=== PATIENT | female | born 1955 | race Caucasian/White ===

== ENCOUNTER 2018-11-18 09:59 | Emergency (ER) | payer BC, OTHER ==
[2018-11-18] MEDS ORDERED: Glucagon* 1 MG VIAL IV ONE (10:16)
[2018-11-18] MEDS ORDERED: NS 0.9% 1000 ML** 1,000 ML IV ONE (10:19)
--- NOTE | 2018-11-18 11:32 | ED ---
GI/ HPI - HPI Summary HPI Summary: Pt. is a 62 y.o female who presents to the ER for possible esophageal foreign body. Pt. states she was eating a hotdog yesterday and believes it is stuck in her throat. Pt. states she has not ate anything since. Pt. states she has been spitting up liquids and saliva. Pt. states she has had food stuck in her throat in the past but usually is able to get it to pass. Otherwise no past medical hx. Sxs are moderate in severity. No current modifying factors. - History of Current Complaint Chief Complaint: EDForeignBodyEsophag Time Seen by Provider: 11/18/18 10:11 Stated Complaint: PT STATES THROAT BLOCKAGE Hx Obtained From: Patient Pain Intensity: 0 - Allergy/Home Medications Allergies/Adverse Reactions: Allergies Allergy/AdvReac Type Severity Reaction Status Date / Time No Known Allergies Allergy Verified 11/08/13 12:38 PMH/Surg Hx/FS Hx/Imm Hx Previously Healthy: Yes Endocrine/Hematology History: Denies: Hx Diabetes, Hx Thyroid Disease Cardiovascular History: Denies: Hx Hypertension Respiratory History: Denies: Hx Asthma, Hx Chronic Obstructive Pulmonary Disease (COPD) GI History: Denies: Hx Ulcer Infectious Disease History: No Infectious Disease History: Denies: Hx Hepatitis, Hx Human Immunodeficiency Virus (HIV), History Other Infectious Disease, Traveled Outside the [place] in Last 30 Days - Family History Known Family History: Positive: Non-Contributory - Social History Occupation: Retired Lives: With Family Alcohol Use: None Substance Use Type: Reports: None Smoking Status (MU): Never Smoked Tobacco Review of Systems Cardiovascular: Negative Respiratory: Negative Positive: Other - esophageal FB All Other Systems Reviewed And Are Negative: Yes Physical Exam Triage Information Reviewed: Yes Vital Signs On Initial Exam: Initial Vitals Temp Pulse Resp BP Pulse Ox 97.8 F 84 16 161/90 99 11/18/18 10:07 11/18/18 10:07 11/18/18 10:11/18/18 10:11/18/18 10:07 Vital Signs Reviewed: Yes Appearance: Positive: Well-Appearing - Pt. sitting on bed in NAD. Pleasant. present. Skin: Positive: Warm, Dry Head/Face: Positive: Normal Head/Face Inspection Eyes: Positive: Normal, EOMI, KITTY Neck: Positive: Supple Musculoskeletal: Positive: Normal, Strength/ROM Intact Neurological: Positive: Normal, CN Intact II-III Psychiatric: Positive: Affect/Mood Appropriate Diagnostics - Vital Signs Vital Signs Temp Pulse Resp BP Pulse Ox 11/18/18 10:07 97.8 F 84 16 161/90 99 - Laboratory Lab Statement: Any lab studies that have been ordered have been reviewed, and results considered in the medical decision making process. GIGU Course/Dx - Course Course Of Treatment: Suspect partial food impaction. IV started and pt. given glucagon without improvement. GI consulted and Dr. Greco in to see pt. in ED 1135. EDG performed by Dr. Greco, please see his procedure not for further information. He was able to push hot dog through. He did not some inflammation. Biopsy sent. Stricture also dilated. He would like 40mg protonix x 30 days. Pt. will f.u in office. Pt. back to baseline at time of dc. - Diagnoses Differential Diagnoses - Female: Gerd, GI Foreign Body Provider Diagnoses: Esophageal obstruction due to food impaction Discharge - Sign-Out/Discharge Documenting (check all that apply): Patient Departure Patient Received Moderate/Deep Sedation with Procedure: No - Discharge Plan Condition: Improved Disposition: HOME Prescriptions: Pantoprazole TAB * [Protonix TAB*] 40 mg PO DAILY #30 tab Patient Education Materials: Gastroesophageal Reflux Disease (ED), Esophageal Stricture (ED), Moderate Sedation (ED), Allergic Esophagitis (ED) Referrals: Moses Greco DO [Doctor of Osteopathy] - Additional Instructions: Schedule a follow up appointment with Dr. Greco Take protonix as directed Return to ER if symptoms change or worsen - Billing Disposition and Condition Condition: IMPROVED Disposition: Home
[2018-11-18] MEDS ORDERED: fentaNYL* 50 MCG/ML 2 ML VIAL (100 MCG VIAL) ONE (12:47)
[2018-11-18] MEDS ORDERED: Midazolam* 1 MG/ML 10 ML VIAL (10 MG) ONE (12:47)
[2018-11-18 15:37] VITALS: BP 122/75
--- NOTE | 2018-11-18 18:46 | CONS ---
CONSULTATION REPORT: DATE OF CONSULT: 11/18/18 REQUESTING PROVIDER: MARCY Weiner REASON FOR CONSULTATION: Food bolus impaction. HISTORY OF PRESENT ILLNESS: This is a very pleasant 62-year-old female visiting from [place], who presents to the emergency room with difficulty swallowing after eating a hot dog yesterday afternoon. She states that she has difficulty with her secretions. She has not had any further food since that time and has been spitting up liquids and saliva. She states she had a previous episode last year, but it usually passes. She denies any typical heartburn symptoms. She does admit to solid dysphagia occasionally over the last 2 years. She has no liquid dysphagia and no odynophagia. She has no weight loss or weight gain. Denies any abdominal pain. Denies any melena or hematochezia. Denies any diarrhea or constipation. The remainder of the 14- point review of systems is grossly negative. PAST MEDICAL HISTORY: Seasonal allergies. PAST SURGICAL HISTORY: Colonoscopy about 9 to 10 years ago. HOME MEDICATIONS: Occasional Tylenol usage p.r.n. ALLERGIES: No known drug allergies. FAMILY HISTORY: Maternal history of colorectal cancer. SOCIAL HISTORY: Retired. No alcohol. No tobacco. REVIEW OF SYSTEMS: The remainder of the 14-point review of systems is grossly negative. PHYSICAL EXAMINATION: Vital Signs: Blood pressure 161/90, temperature 97.8, pulse is 84, respiratory rate is 16, 99% on room air. In general, alert and oriented x3, occasionally spitting up saliva. HEENT: Atraumatic, normocephalic. Pupils equal, round, reactive to light. Extraocular movements are intact. Conjunctivae are pink. Sclerae are icteric. Cardiovascular: Regular rate and rhythm. S1, S2. Pulmonary: Clear to auscultation bilaterally. Abdomen: Soft, nontender, nondistended. Bowel sounds positive. Extremities: No clubbing. No cyanosis. No edema. Skin Exam: Without rash or lesions. Psych: Appropriate mood and affect. LABORATORY DATA: None. ASSESSMENT AND PLAN: This is a 62-year-old female with food bolus impaction with difficulty with secretions. Food bolus impaction. We will plan emergent upper endoscopy given difficulty with secretions. Discussed potential dilation. Discussed the risks, benefits, and alternatives, the procedure and the patient would like to proceed. [id number]/[facility] #: [id number] [facility]
--- NOTE | 2018-11-18 19:37 | PRO ---
ESOPHAGOGASTRODUODENOSCOPY REPORT: DATE OF PROCEDURE: 11/18/18 - EMERGENCY DEPT INDICATION FOR PROCEDURE: Food bolus impaction. PROCEDURE PERFORMED: Complete esophagogastroduodenoscopy with food bolus removal and dilatation. MEDICATIONS GIVEN: Include 8 mg IV midazolam, 37.5 mcg IV fentanyl. DESCRIPTION OF PROCEDURE: After the EGD procedure including the risks, benefits , and alternatives with the risks not limited to perforation, surgery, missed lesions, and/or were explained to the patient, written informed consent was obtained, IV medication was given, and a bite-block was placed between the teeth. The adult Olympus gastroscope was then inserted into the patient's oropharynx and into the tubular esophagus. In the tubular esophagus, there was trachealization of the entire esophagus. At the distal portion, there was a 3 to 4 cm bolus of residual meat. This was easily pushed with gentle traction through the lower distal esophagus into the stomach. On return to the esophagus , there was evidence of a fibrous stricture, very short, less than 1 cm, right above the GE junction. There was no inflammatory component around this area. I did extensive biopsies of the stricture. The decision was then made to dilate. I dilated with a through the scope CRE balloon initially at 13 mm and 14 mm and then finally 15 mm with excellent effect. A rent was observed at 6 o' clock. The balloon was then removed. The scope was then advanced through the lower esophageal sphincter into the stomach. Direct views of the stomach were normal. On retroflexion, the views were normal as well. The scope was then advanced through the widely patent pylorus into the duodenal bulb, C-loop, and distal duodenum. These were normal. In the mid esophagus, I did take biopsies to rule out EoE as well. The scope was then removed from the patient. She tolerated the procedure well. She returned to the recovery room in stable condition. IMPRESSION: 1. Complete esophagogastroduodenoscopy with biopsies, balloon dilatation, and foreign body removal. 2. Successful food bolus disimpaction. 3. Dilatation of fibrotic stricture to 15 mm as above. 4. Features of potential eosinophilic esophagitis, biopsies of the stricture and of the mid esophagus to evaluate for eosinophil count. RECOMMENDATIONS: We will start a daily PPI at this time. Await results of the biopsies. If evidence of EoE, we would recommend a repeat EGD potentially in 3 months' time. We would consider repeat dilatation depending on the patient's symptomatology and biopsies of the stricture. [id number]/[facility] #: [id number] MTDJeanette
== END 2018-11-18 15:36 | disposition home or self-care (01) ==
LOC: ED 09:59
DX: K22.2 Esophageal obstruction (principal); T18.128A Food in esophagus causing other injury, initial encounter; X58.XXXA Exposure to other specified factors, initial encounter
CPT/HCPCS: 88305; 96361; 96374; 96375; 99156; 99284; J1610; J2250; J3010